=== PATIENT | male | born 1990 | race Caucasian/White ===

== ENCOUNTER 2016-08-06 21:26 | Emergency (ER) | payer SELFPAY ==
[2016-08-06 21:29] VITALS: BP 165/75; PULSE 87; RESP 16; TEMP 98.1; O2SAT 99
[2016-08-06] MEDS ORDERED: HYDR-3533 PO (22:00)
[2016-08-06] MEDS ORDERED: MAGICADU2 SWISH-SPIT (22:00)
[2016-08-06] MEDS ORDERED: PENI500T PO (22:00)
[2016-08-06] MEDS ORDERED: ACETAMINOPHEN/HYDROcodone 325 MG/5 MG TAB PO ONE (22:00)
[2016-08-06] MEDS ORDERED: PENICILLIN V POTASSIUM 500 MG TAB PO ONE (22:00)
--- NOTE | 2016-08-06 22:09 | PD ---
HPI Chief Complaint: Oral / Dental Pain or Problem Time Seen by Provider: 21:52 Travel History International Travel<30 days: No Contact w/Intl Traveler<30days: No Traveled to known affect area: No History of Present Illness HPI This is a 26-year-old male who presents for evaluation. He reports over the past 4 days he has been having chills, sweats, fevers. He has been having pain in the left side of his mouth where he typically holds his chewing tobacco. The pain is a aching pain that radiates into the left ear. The pain has made it difficult for him to eat. He has been avoiding the chewing tobacco because of the localized mouth irritation. Symptoms have persisted which prompted evaluation today. He has been using [id number] Motrin which helps some but symptoms return after the Motrin wears off. He reports that there feels like a sore on the left side of his mouth where he typically holds his chewing tobacco which has been expressing some purulent and bloody drainage intermittently. He has had no sore throat, cough or congestion, stiff neck, rash, abdominal pain, dysuria, flank pain, testicular or scrotal pain. He is currently in town for a wedding, he traveled here from [place] 5 days ago. He has no other complaints at this time. [facility] Social History Alcohol Use: No Tobacco Use: Yes Allergies-Medications (Allergen,Severity, Reaction): Coded Allergies: No Known Allergies (Unverified , 08/06/16) Reported Meds & Prescriptions Reported Meds & Active Scripts Active Magic Mouthwash Adult Liq (Multi-Ingredient Mouthwash/Gargle) 120 Ml Susp 10 Ml SWISH-SPIT ACHS PRN Each 5mL contains: Nystatin 200,000units, Diphenhydramine 4.25mg, Viscous Lidocaine 10mg, Novak syrup 0.8 mL Penicillin V Potassium 500 Mg Tab 500 Mg PO Q6H 10 Days Lortab (Hydrocodone-Acetaminophen) 5-325 Mg Tab 1 Tab PO Q6H PRN Review of Systems Except as stated in HPI: all other systems reviewed are Neg Physical Exam Narrative GENERAL: Well-developed well-nourished male in no acute distress vital signs reviewed SKIN: Warm and dry. HEAD: Atraumatic. Normocephalic. EYES: Pupils equal and round. No scleral icterus. No injection or drainage. ENT: No nasal bleeding or discharge. Mucous membranes pink and moist. There is tenderness to palpation posterior to the left mandibular molars. There is some localized irritation of the gumline. I am not appreciating any open wounds or edema, no drainage or fluctuance. There is no oral pharyngeal erythema or exudate, uvula midline with no mass effect. No stridor or drooling. Tympanic membranes appear normal bilaterally. There is no mastoid tenderness bilaterally. NECK: Trachea midline. No JVD. No lymphadenopathy. No submandibular edema. Neck supple full range of motion, no meningismus CARDIOVASCULAR: Regular rate and rhythm. No murmur appreciated. RESPIRATORY: No accessory muscle use. Clear to auscultation. Breath sounds equal bilaterally. GASTROINTESTINAL: Abdomen soft, non-tender, nondistended. Hepatic and splenic margins not palpable. NEUROLOGICAL: Awake and alert. No obvious cranial nerve deficits. Motor grossly within normal limits. Normal speech. Data Data Last Documented VS Vital Signs Date Time Temp Pulse Resp B/P Pulse Ox O2 Delivery O2 Flow Rate FiO2 08/06/16 21:29 98.1 87 16 165/75 99 Room Air Orders Acetamin-Hydrocod 325-5 Mg ([place] 5-325 (08/06/16 22:00) Penicillin V Potassium (Veetids) (08/06/16 22:00) MDM Medical Decision Making Medical Screen Exam Complete: Yes Emergency Medical Condition: Yes Medical Record Reviewed: Yes Differential Diagnosis Localized irritation from chewing tobacco versus cellulitis versus intraoral abscess versus retropharyngeal abscess versus peritonsillar abscess versus Amarjit's versus dental caries versus influenza versus mastoiditis versus osteomyelitis versus otitis media Narrative Course 26-year-old male who has been experiencing 4 days of left-sided mouth pain where he typically holds his chewing tobacco in his mouth, fevers and chills. Physical examination is very benign and reassuring. I see no evidence of a retropharyngeal abscess or intraoral abscess or facial cellulitis. There is no evidence for meningitis. He does have some localized irritation in the mouth posterior to the left mandibular molars with tenderness to palpation. This is likely secondary to the chewing tobacco. The patient will be started on penicillin as well as pain medication. I discussed signs and symptoms and warned returning to the emergency room. He is stable for discharge. Diagnosis Primary Impression: Mucosal irritation of oral cavity Additional Instructions: Medication as prescribed. Stay well hydrated well-nourished. You can continue using [id number] Motrin as needed. Dosing instructions on the bottle. Follow-up with primary care physician. Return for any evidence of new or worsening symptoms such as increasing pain, fevers, difficulty swallowing. Med/Other Pt SpecificInfo: Prescription(s) given Scripts Ryeubqxn-Wclghrpqpyxjqoi-Atyubbvfz Liq (Magic Mouthwash Adult Liq)120 Ml Susp10 Ml SWISH-SPIT ACHS PRN (Mouth sores) #120 ML Ref 1 Each 5mL contains: Nystatin 200,000units, Diphenhydramine 4.25mg, Viscous Lidocaine 10mg, Novak syrup 0.8 mL Prov:Jocelynn Khan MD 08/06/16 Penicillin V Potassium 500 Mg [id number] Mg PO Q6H 10 Days Ref 0 Prov:Jocelynn Khan MD 08/06/16 Hydrocodone-Acetaminophen (Lortab)5-325 Mg Tab1 Tab PO Q6H PRN (PAIN) #15 TAB Ref 0 Prov:Jocelynn Khan MD 08/06/16 Disposition: 01 DISCHARGE HOME Condition: Stable Jeffrey Fontana Aug 06, 2016 22:09
== END 2016-08-06 22:39 | disposition home or self-care (01) ==
LOC: NETRI 21:26
DX: K13.79 Other lesions of oral mucosa (principal); R50.9 Fever, unspecified; H92.02 Otalgia, left ear; Z72.0 Tobacco use
CPT/HCPCS: 99282